=== PATIENT | female | born 1970 | race Caucasian/White ===

== ENCOUNTER 2020-07-14 18:40 | Emergency (ER) | payer BC ==
[~2020-07-14] VITALS: Ht 170.2 cm; Wt 59.0 kg
[2020-07-14 19:10] VITALS: Ht 170.2 cm; Wt 59.0 kg
[2020-07-14 21:15] VITALS: BP 107/69
== END 2020-07-14 21:15 | disposition home or self-care (01) ==
LOC: ED 18:40
DX: R10.9 Unspecified abdominal pain (principal); Z90.710 Acquired absence of both cervix and uterus
CPT/HCPCS: J1885